=== PATIENT | male | born 1950 | race Caucasian/White ===

== ENCOUNTER → 2017-08-13 | Outpatient (CLI) | payer BC ==
[~2017-08-13] MED LIST: DAILY VALUE1 EACH PO; LISINOPRIL20 MG PO; LO-DOSE ASPIRIN81 M1 PO
== END | disposition home or self-care (01) ==
LOC: CDC 10:07
DX: Z01.810 Encounter for preprocedural cardiovascular examination (principal); R00.1 Bradycardia, unspecified
CPT/HCPCS: 93000